=== PATIENT | female | born 1990 | race Caucasian/White ===

== ENCOUNTER 2016-05-22 08:09 | Emergency (ER) | payer OTHER ==
[2016-05-22 08:42] VITALS: BP 130/77; PULSE 91; TEMP 99; BMI 26.6
[2016-05-22] MEDS ORDERED: predniSONE 20 MG TABLET (UD) PO ONE (09:14)
[2016-05-22] MEDS ORDERED: predniSONE 20 MG TABLET (UD) ONE (09:20)
--- NOTE | 2016-05-22 09:20 | PDOC ---
History of Present Illness - General Chief Complaint: Rash Stated Complaint: REACTION ON BODY Time Seen by Provider: 05/22/16 08:54 History Source: Patient Exam Limitations: No Limitations - History of Present Illness Initial Comments: 05/22/16 09:15 25 yr female with c/o hives to inner arms on and off for 3 days . no SOB no fever, pt unsure what is cause. Pt has multiple allergies. Pt took benadryl last night with relief. Past History - Past Medical History Allergies/Adverse Reactions: Allergies Allergy/AdvReac Type Severity Reaction Status Date / Time avocado Allergy Verified 05/22/16 08:37 cat dander Allergy Verified 05/22/16 08:37 Home Medications: Ambulatory Orders Prednisone [Deltasone -] 20 mg PO DAILY #5 tablet 05/22/16 Cardiac Disorders: Yes (hear mummer) Other medical history: allergies - Immunization History Immunization Up to Date: Yes - Psycho/Social/Smoking Cessation Hx Anxiety: No Suicidal Ideation: No Smoking History: Never smoked Hx Alcohol Use: No Drug/Substance Use Hx: No Substance Use Type: None Review of Systems - Review of Systems Able to Perform ROS?: Yes Is the patient limited Marshallese proficient: No Constitutional: No: Symptoms Reported HEENTM: No: Symptoms Reported Respiratory: No: Symptoms reported Cardiac (ROS): No: Symptoms Reported ABD/GI: No: Symptoms Reported : No: Symptoms Reported Musculoskeletal: No: Symptoms Reported Integumentary: Yes: Symptoms Reported *Physical Exam - Vital Signs Last Vital Signs Temp Pulse Resp BP Pulse Ox 99 F 91 H 16 130/77 99 05/22/16 08:38 05/22/16 08:38 05/22/16 08:38 05/22/16 08:38 05/22/16 08:38 - Physical Exam General Appearance: Yes: Nourished, Appropriately Dressed HEENT: positive: EOMI, SPENSER, Normal ENT Inspection, TMs Normal, Pharynx Normal Neck: positive: Supple. negative: Tender Respiratory/Chest: positive: Lungs Clear, Normal Breath Sounds Cardiovascular: positive: Regular Rhythm, Regular Rate Musculoskeletal: positive: Normal Inspection Extremity: positive: Normal Inspection, Normal Range of Motion Integumentary: positive: Normal Color, Dry, Warm, Hives (bilateral inner upper arms ) Neurologic: positive: Alert, Normal Mood/Affect, Normal Response, Motor Strength 5/5 Medical Decision Making - Medical Decision Making 05/22/16 09:18 cc: hives with uticaria will give prednisone follow up with composite technician for further eval *DC/Admit/Observation/Transfer Diagnosis at time of Disposition: Hives of unknown origin - Discharge Dispostion Disposition: HOME Condition at time of disposition: Good - Prescriptions Prescriptions: Prednisone [Deltasone -] 20 mg PO DAILY #5 tablet - Patient Instructions Additional Instructions: cool water to bathe, cool compresses to hives take benadryl at bedtime as needed for itching take a non drowsy antihistamine every morning for at least 7 days take prednisone in the morning for 5 days follow with composite technician or your primary care doctor
== END 2016-05-22 10:21 | disposition home or self-care (01) ==
LOC: JERFT 08:09
DX: L50.9 Urticaria, unspecified (principal)
CPT/HCPCS: 99281-25